=== PATIENT | male | born 1980 | race Caucasian/White ===

== ENCOUNTER 2017-11-14 15:45 | Emergency (ER) | payer OTHER ==
[~2017-11-14] VITALS: Ht 177.8 cm; Wt 79.4 kg
[2017-11-14] MEDS ORDERED: CLEOCIN HCL300 MG PO (16:38)
[2017-11-14] MEDS ORDERED: BACTROBAN NASAL1 GM NASAL (16:39)
[2017-11-14 16:50] VITALS: BP 135/84
== END 2017-11-14 16:52 | disposition home or self-care (01) ==
LOC: M.ERS 15:45
DX: L02.415 Cutaneous abscess of right lower limb (principal); F17.200 Nicotine dependence, unspecified, uncomplicated; Z86.14 Personal history of Methicillin resistant Staphylococcus aureus infection